=== PATIENT | male | born 1990 | race African-American/Black ===

== ENCOUNTER 2017-07-12 11:35 | Emergency (ER) | payer OTHER ==
[~2017-07-12 11:35] MED LIST: ALBUTEROL INHAL17 GM; ALBUTEROL2.5 MG/31 IH; ALBUTEROL2.5 MG/31 INH; MEDROLDOSEPACK PO; PREDNISONE 20 M20 M1 PO; PROVENTIL IH; SINGULAIR 10 MG10 M1 PO; VENTOLIN HFA 1818 GM INH; ZPAK PO
[2017-07-12] MEDS ORDERED: ACCUNEB SO1.25 MG/1 INH (12:03)
[2017-07-12] MEDS ORDERED: VENTOLIN HFA 1818 GM INH (12:03)
== END 2017-07-12 15:21 | disposition home or self-care (01) ==
LOC: ER 11:35
DX: J45.901 Unspecified asthma with (acute) exacerbation (principal)